=== PATIENT | female | born 1960 | race Caucasian/White ===

== ENCOUNTER 2023-10-02 21:22 | Emergency (ER) | payer OTHER ==
[~2023-10-02] VITALS: Ht 157.5 cm; Wt 71.3 kg
[2023-10-02 23:55] VITALS: BP 159/83; PULSE 65; RESP 17; TEMP 98.7; O2SAT 99
[2023-10-03] MEDS: HYDROcodone-ACET 5/325MG TAB PO ONE (00:34)
[2023-10-03] MEDS: TETANUS-DIPTH-ACEL PERTUSSIS 0.5ML SYR Tdap IM ONE (00:35)
[2023-10-03] MEDS: LIDOCAINE 1% HCL (LOCAL ANESTH.) INJ 20ML MDV IJ ONE (01:15)
[2023-10-03] MEDS ORDERED: IBUP-1456 PO (02:06)
[2023-10-03] MEDS ORDERED: AUG875T PO (02:34)
== END 2023-10-03 02:35 | disposition home or self-care (01) ==
LOC: ER 21:22
DX: S42.435A Nondisplaced fracture (avulsion) of lateral epicondyle of left humerus, initial encounter for closed fracture (principal); S51.012A Laceration without foreign body of left elbow, initial encounter; W01.0XXA Fall on same level from slipping, tripping and stumbling without subsequent striking against object, initial encounter; Y93.89 Activity, other specified; Y92.89 Other specified places as the place of occurrence of the external cause; Y99.8 Other external cause status
CPT/HCPCS: 12001; 29105; 73080; 90471; 90715; J2001